=== PATIENT | female | born 2000 | race Caucasian/White ===

== ENCOUNTER 2022-02-28 11:15 | Emergency (ER) | payer OTHER ==
[~2022-02-28] VITALS: Ht 167.6 cm; Wt 116.1 kg
--- NOTE | 2022-02-28 11:19 | NUR ---
pt [facility] to ed bed 09. per report, pt fell and had a seizure like activity lasting about a minute, pt had no head and oral trauma,c/o dizziness banquet captain. stable vitals, aao, states last had seizure episode a "month" ago. on monitor. awaiting md piña.
--- NOTE | 2022-02-28 11:20 | NUR ---
dr howard at bedside for eval.
[2022-02-28] MEDS ORDERED: IV NS 0.9% 1,000 ML IV ONE (11:30)
[2022-02-28] MEDS ORDERED: LEVETIRACETAM (500MG) 1,000 MG in IV NS 0.9% 100 ML IV SCH (11:30)
--- NOTE | 2022-02-28 11:30 | NUR ---
iv line started blood drawn and sent to lab.
--- NOTE | 2022-02-28 11:41 | NUR ---
medicated as ordered. see emar.
--- NOTE | 2022-02-28 12:55 | NUR ---
pt is medically cleared. discharged to [facility] in stable condition. IV removed. Catheter intact and site benign. Pressure and 4x4 applied to site. No bleeding noted.
[2022-02-28 12:56] VITALS: BP 135/76
== END 2022-02-28 12:56 ==
LOC: ER 11:17
DX: G40.909 Epilepsy, unspecified, not intractable, without status epilepticus (principal)
CPT/HCPCS: 99284; 96365; J7030 ×2; J1953